=== PATIENT | female | born 1960 | race African-American/Black ===

== ENCOUNTER 2019-08-20 01:17 | Emergency (ER) | payer MEDICAID ==
[~2019-08-20] VITALS: Ht 165.1 cm; Wt 65.8 kg
[2019-08-20] MEDS ORDERED: Ketorolac 30mg Inj IV ONE (01:30)
[2019-08-20] MEDS ORDERED: HYDROmorphone 1mg/ml Carpuject IVP ONE ×2 (01:30→03:30)
--- NOTE | 2019-08-20 01:30 | Emergency Room Report ---
History of Present Illness General Chief Complaint: Lower Extremity Injury Source: Patient, EMS Present Illness HPI This a 58-year-old female with history of high blood pressure and colon cancer. She is status post resection in 2013. Did not undergo chemotherapy or radiation. She presents with chief complaint of back pain with radiation down her left leg. Onset about a week ago. Her doctor diagnosed her with osteoarthritis and put her on gabapentin, Voltaren, steroid. She said it was not helping. Tonight the pain was shooting and radiate down her legs. It woke her up. Pain is 10 out of 10. Unable to bear weight. She had to call 911. No incontinence of bowel or urine. No weight loss. No fever chills. No numbness. Allergies: Coded Allergies: No Known Allergies (Unverified , 08/20/19) COVID-19 Screening Contact w/high risk pt: No Recent Travel to affected area: No Experienced COVID-19 symptoms?: No COVID-19 Testing performed SURFACE BOSS: No Patient History Past Medical History: see triage record, old chart reviewed, HTN Past Surgical History: none Pertinent Family History: none Social History: Denies: smoking Last Menstrual Period: 2008 Now: No : 0 Para: 0 Nursing Documentation-PMH Hx Hypertension: Yes Hx Cancer: Yes - COLON Review of Systems Eye: Denies: eye pain, blurred vision ENT: Denies: ear pain, nose congestion, throat swelling Respiratory: Denies: cough, shortness of breath Cardiovascular: Denies: chest pain, palpitations Gastrointestinal: Denies: abdominal pain, diarrhea, nausea, vomiting Musculoskeletal: Reports: back pain; Denies: joint pain Skin: Denies: rash Neurological: Denies: headache, numbness Endocrine: Denies: increased thirst, increased urine Hematologic/Lymphatic: Denies: easy bruising All Other Systems: negative except mentioned in HPI Physical Exam Vital Signs Date Time Temp Pulse Resp B/P (MAP) Pulse Ox O2 Delivery O2 Flow Rate FiO2 08/20/19 01:13 97.3 110 18 176/110 (132) 98 Room Air Vitals with high blood pressure Sp02 EP Interpretation: reviewed, normal General Appearance: well appearing, no apparent distress, alert Head: normocephalic, atraumatic Eyes: bilateral eye PERRL, bilateral eye EOMI ENT: hearing grossly normal, normal pharynx Neck: full range of motion, supple, no meningismus Respiratory: chest non-tender, lungs clear, normal breath sounds Cardiovascular #1: regular rate, rhythm, no murmur Gastrointestinal: normal bowel sounds, non tender, no mass, no organomegaly, no bruit, non-distended Musculoskeletal: back normal - Tenderness to the lower lumbar area., normal range of motion Psychiatric: mood/affect normal Medical Decision Making Diagnostic Impression: Primary Impression: Sciatica of left side Additional Impression: Lumbar disc disease with radiculopathy ER Course This patient presents with back pain with radiculopathy and sciatica. CT scan show significant degenerative disc disease and disc bulge of the lumbar spine. No evidence of cauda equina syndrome, spinal epidural abscess or neoplastic process. CT/MRI/US Diagnostic Results CT/MRI/US Diagnostic Results : Imaging Test Ordered: CT lumbar spine Impression Read by radiologist. Degenerative disc disease. Moderate disc bulge of L3-L4 and L4-L5. Last Vital Signs Date Time Temp Pulse Resp B/P (MAP) Pulse Ox O2 Delivery O2 Flow Rate FiO2 08/20/19 01:13 97.3 110 18 176/110 (132) 98 Room Air Status: improved Disposition: HOME, SELF-CARE Condition: Stable Scripts Docusate Sodium* (COLACE*) 100 Mg Capsule 100 MG ORAL TWICE A DAY, #60 CAP Prov: Maximo Painter MD 08/20/19 Hydrocodone/Acetaminophen 5-325* (HYDROCODONE/ACETAMINOPHEN 5-325*) 1 Each Tablet 1 TAB ORAL Q6H PRN for For Pain, #30 TAB 0 Refills Prov: Maximo Painter MD 08/20/19 Additional Instructions: No heavy lifting. Follow-up with your doctor within a week. You may need an MRI of your lumbar spine. Return if symptoms worsen. Maximo Painter MD Aug 20, 2019 01:30
[2019-08-20 02:45] VITALS: BP 137/64
--- NOTE | 2019-08-20 02:54 | Diagnostic Imaging Report ---
ADDENDUM - Added by Sheri Camilo MD on 08/20/2019 4:35 AM (-07:00) Regarding lumbar spine: At the L2-3 level, there is minimal disc bulge, slightly eccentric towards the right, resulting in minimal encroachment on the right lateral recess and mild narrowing of the right neural foramen. At the L3-4 level, there is a moderate diffuse disc bulge with mild facet arthropathy and ligamentum flavum hypertrophy. This results in mild to moderate central canal narrowing and mild bilateral neural foraminal narrowing. At the L4-5 level, there is a mild grade 1 anterolisthesis of L4 on 5, approximately 2 mm. There is a moderate to severe diffuse disc bulge which is slightly eccentric towards the right paracentral and lateral aspect. There is moderate ligamentum flavum hypertrophy. There is moderate to severe right and moderate left facet arthropathy. These findings result in moderate to severe central canal stenosis. There is severe narrowing of the right neural foramen with moderate to severe narrowing of the left. At the L5-S1 level, there is a disc bulge with slightly eccentric towards the right. There is no significant central canal or neural foraminal narrowing. EXAM: CT Abdomen and Pelvis Without Intravenous Contrast CLINICAL HISTORY: PAIN TECHNIQUE: Axial computed tomography images of the abdomen and pelvis without intravenous contrast. CTDI is 8.5 mGy and DLP is 389 mGy-cm. One or more of the following dose reduction techniques were used: automated exposure control, adjustment of the mA and/or kV according to patient size, use of iterative reconstruction technique. COMPARISON: No relevant prior studies available. FINDINGS: Lung bases: Unremarkable. No mass. No consolidation. ABDOMEN: Liver: Unremarkable. Gallbladder and bile ducts: Unremarkable. No calcified stones. No ductal dilation. Pancreas: Unremarkable. No ductal dilation. Spleen: Unremarkable. No splenomegaly. Adrenals: Unremarkable. No mass. Kidneys and ureters: Prominent left proximal and mid ureter which is difficult to follow distally with minimal periureteral possible stranding; this could be seen with UTI or recently passed stone. No urolithiasis otherwise noted. Correlate with UA Likely left parapelvic cysts, benign findings which require no additional follow-up. Stomach and bowel: Prominent colonic stool burden, which could be a cause for pain. No obstruction. No mucosal thickening. PELVIS: Appendix: No findings to suggest acute appendicitis. Bladder: Urinary bladder wall thickening despite distention. This could be incidental, correlate clinically to exclude infectious or inflammatory cystitis. No stones. Reproductive: Unremarkable as visualized. ABDOMEN and PELVIS: Intraperitoneal space: Unremarkable. No free air. No significant fluid collection. Bones/joints: No acute fracture. No dislocation. Soft tissues: Unremarkable. Vasculature: Scattered bowel findings. Atherosclerotic vascular disease. No abdominal aortic aneurysm. Lymph nodes: Unremarkable. No enlarged lymph nodes. IMPRESSION: 1. Prominent left proximal and mid ureter which is difficult to follow distally with minimal periureteral possible stranding; this could be seen with UTI or recently passed stone. No urolithiasis otherwise noted. Correlate with UA 2. Urinary bladder wall thickening despite distention. This could be incidental, correlate clinically to exclude infectious or inflammatory cystitis. 3. Prominent colonic stool burden, which could be a cause for pain. <MYCVCSECTION> Communications: 08/20/19 03:43 Call From Maximo Olmos MD on 08/19 03:43 (-07:00) 08/20/19 03:47 Call From [facility] Maximo Painter MD on 08/19 03:46 (-07:00) 08/20/19 04:07 Call From Maximo Olmos MD on 08/19 04:01 (-07:00) 08/20/19 04:23 Call From [facility] Maximo Painter MD on 08/19 04:14 (-07:00) 08/20/19 04:44 Verify Receipt Verified receipt with AQUILINO Norton in ER for Maximo Painter MD on 08/19 04:42 (-07:00)
[2019-08-20 04:00] VITALS: BP 138/71
[2019-08-20 04:15] VITALS: BP 137/64
[2019-08-20] MEDS ORDERED: COLACE100 MG ORAL (04:23)
[2019-08-20] MEDS ORDERED: HYDROCODON-ACE1 EA15 ORAL (04:23)
== END 2019-08-20 04:15 | disposition home or self-care (01) ==
LOC: EDBD 01:17 → EMR 02:16
DX: M54.32 Sciatica, left side (principal); I10 Essential (primary) hypertension; Z85.038 Personal history of other malignant neoplasm of large intestine; M19.90 Unspecified osteoarthritis, unspecified site; Z79.899 Other long term (current) drug therapy; M51.16 Intervertebral disc disorders with radiculopathy, lumbar region
CPT/HCPCS: 72131; 96374; 96375; 96376; J1170; J1885; J2405; Z7502; 99284

== ENCOUNTER 2019-08-23 09:00 | Emergency (ER) | payer MEDICAID ==
[~2019-08-23] VITALS: Ht 165.1 cm; Wt 65.8 kg
[~2019-08-23 09:00] MED LIST: COLACE100 MG ORAL; HYDROCODON-ACE1 EA15 ORAL
[2019-08-23 09:14] VITALS: BP 102/65
[2019-08-23] MEDS ORDERED: TYLENOL325 MG ORAL (09:24)
[2019-08-23] MEDS ORDERED: IBUPROFEN600 M1 ORAL (09:24)
[2019-08-23] MEDS ORDERED: ROBAXIN-750750 MG PO (09:24)
[2019-08-23] MEDS ORDERED: LIDODERM700 M1 TOPIC (09:24)
--- NOTE | 2019-08-23 09:24 | Emergency Room Report ---
History of Present Illness General Chief Complaint: Lower Back Pain or Injury Source: Patient Present Illness HPI 58-year-old female history of sciatic nerve pain, history of bulging disks, presents with continued left shooting pain from her left buttock left lower back down her left leg, aggravated with certain positions alleviated with rest severity is moderate, she denies any bowel bladder retention/incontinence, no perianal numbness, no fevers no chills no history of IV drug use, patient states she is waiting for preauthorization to see an orthopedic/neurosurgeon to evaluate her back patient is requesting a pain shot as well as a steroid. Allergies: Coded Allergies: No Known Allergies (Unverified , 08/20/19) COVID-19 Screening Contact w/high risk pt: No Recent Travel to affected area: No Experienced COVID-19 symptoms?: No COVID-19 Testing performed BULL RIDER: No Patient History Past Medical History: see triage record Reviewed Nursing Documentation: PMH: Agreed; PSxH: Agreed Nursing Documentation-PMH Past Medical History: No History, Except For Hx Hypertension: Yes Hx Cancer: Yes - COLON Review of Systems All Other Systems: negative except mentioned in HPI Physical Exam Vital Signs Date Time Temp Pulse Resp B/P (MAP) Pulse Ox O2 Delivery O2 Flow Rate FiO2 08/23/19 09:05 98.4 72 20 102/65 (77) 100 Room Air General Appearance: well appearing, no apparent distress Head: normocephalic, atraumatic ENT: hearing grossly normal, normal voice Neck: full range of motion, supple Respiratory: no respiratory distress, speaking full sentences Musculoskeletal: other - Back: No midline tenderness no step-offs, tenderness to palpation left lateral back left paraspinal back, MSK: 5-5 hip flexion extension, knee flexion extension, ankle plantar dorsiflexion, numbness near the left anterior leg Neurologic: alert, normal gait Psychiatric: mood/affect normal Skin: no rash Medical Decision Making Diagnostic Impression: Primary Impression: Sciatica of left side ER Course The patient presents with acute onset of back pain. Clinically this patient can be ruled out for serious pathology given there is a completely normal neurological exam, no history of IV drug use, and no history of bowel or bladder incontinence, no perianal numbness/tingling, no constipation or urinary retention. Once the patient's pain was adequately controlled, the patient was able to ambulate and be discharged in stable condition with anticipatory guidance provided. Last Vital Signs Date Time Temp Pulse Resp B/P (MAP) Pulse Ox O2 Delivery O2 Flow Rate FiO2 08/23/19 09:14 98.4 72 20 102/65 100 Room Air Disposition: HOME, SELF-CARE Condition: Stable Scripts Lidocaine Patch* (Lidoderm Patch*) 1 Each Adh..patch 1 PATCH TOPIC DAILY, #7 PATCH 0 Refills Patch(es) may remain in place for up to 12 hours in any 24-hour period. Prov: Allen Nathan MD 08/23/19 Methocarbamol* (ROBAXIN-750*) 750 Mg Tablet 750 MG PO QID, #28 TAB 0 Refills Prov: Allen Nathan MD 08/23/19 Acetaminophen (Tylenol) 325 Mg Tablet 650 MG ORAL Q6H PRN for Prn Pain/Headache/Temp > 101, #30 TAB 0 Refills Prov: Allen Nathan MD 08/23/19 Ibuprofen* (MOTRIN*) 600 Mg Tablet 600 MG ORAL Q8H PRN for FOR PAIN, #30 TAB 0 Refills Prov: Allen Nathan MD 08/23/19 Referrals: [facility] Patient Instructions: Sciatica, [id number] Additional Instructions: The patient was provided with discharge instructions, notified to follow-up with a primary care doctor and or specialist in the next 24-48 hours, and to return to the ED if they have worsening of their symptoms. Please note that this report is being documented using [employer] technology. This can lead to erroneous entry secondary to incorrect interpretation by the dictating instrument. Allen Nathan MD Aug 23, 2019 09:24
--- NOTE | 2019-08-23 09:26 | NUR ---
ED Nurse Note:pt. came with c/o left lower back sciatica pain
[2019-08-23] MEDS ORDERED: Ketorolac 30mg Inj IM ONE (09:30)
[2019-08-23] MEDS ORDERED: HYDROcodone/Acetamin 5/325 tab ORAL ONE (09:30)
[2019-08-23 09:48] VITALS: BP 102/65
--- NOTE | 2019-08-23 09:50 | NUR ---
ED Nurse Note: Pt cleared by health care Provider for discharge. DC instructions/prescription was given and explained to pt and verbalized understanding of teachings. All medical deviecs such as ID band removed. Pt is AAO x4, ambulatory and left with all personal belongings.
== END 2019-08-23 09:58 | disposition home or self-care (01) ==
LOC: EMR 09:20
DX: M54.32 Sciatica, left side (principal); I10 Essential (primary) hypertension; Z85.038 Personal history of other malignant neoplasm of large intestine
CPT/HCPCS: 96372; J1100; J1885; Z7502; 99283

== ENCOUNTER 2019-09-02 09:54 | Emergency (ER) | payer MEDICAID ==
[~2019-09-02] VITALS: Ht 165.1 cm; Wt 65.8 kg
[~2019-09-02 09:54] MED LIST changes: +IBUPROFEN600 M1 ORAL; +LIDODERM700 M1 TOPIC; +ROBAXIN-750750 MG PO; +TYLENOL325 MG ORAL
--- NOTE | 2019-09-02 10:05 | NUR ---
ED Nurse Note: PT AMBULATED TO ED C/O LEFT HIP PAIN RADIATING DOWN THE LEFT LEG X 1 MONTH. PT STATES SHE WAS TOLD TO RETURN IN THE WEEK TO COMPLETE AND MRI. PT REPORTS HISTORY OF HERNIATED DISK, OSTEOARTHRITIS, AND SCIATICA.
--- NOTE | 2019-09-02 10:06 | NUR ---
ED Nurse Note: PT STATES THAT SHE DID NOT TAKE ANY MEDICATION PRIOR TO ARRIVAL TO ED
[2019-09-02 10:08] VITALS: BP 149/91
[2019-09-02] MEDS ORDERED: Ketorolac 30mg Inj IM ONE (11:00)
[2019-09-02] MEDS ORDERED: ROBAXIN-500MG ORAL (11:13)
[2019-09-02 11:15] VITALS: BP 145/87
[2019-09-02] MEDS ORDERED: MEDROL DOSEPAK4 MG ORAL (11:15)
--- NOTE | 2019-09-02 11:15 | NUR ---
ER DISCHARGE NOTE: Patient is cleared to be discharged per ERMD, pt is aox4, on room air, with stable vital signs. pt was given dc and prescription instructions, pt was able to verbalize understanding, pt id band removed. pt is able to ambulate with steady gait. pt took all belongings. Pt educated regarding lumbar pain and medication prescrip.
--- NOTE | 2019-09-04 15:31 | Emergency Room Report ---
History of Present Illness General Chief Complaint: Pain Source: Patient Present Illness HPI Patient is a 58-year-old female presents after increased low back pain and left- sided leg pain. Patient had recent ER visit for similar symptoms and had recent imaging studies performed. She denies any fever. She denies any weakness or bowel or bladder dysfunction. She had been taking medications for pain without any improvement. Denies any recent trauma. Onset of symptoms over the past 2 weeks. Denies any dysuria or vomiting or diarrhea. Previously been told that she had herniated disc. 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 COVID-19 Screening: Negative COVID-19 COVID-19 Testing Source: nasopharynx Patient History Past Medical History: see triage record Now: No Reviewed Nursing Documentation: PMH: Agreed; PSxH: Agreed Nursing Documentation-PMH Hx Hypertension: Yes Hx Cancer: Yes - COLON Review of Systems All Other Systems: negative except mentioned in HPI Physical Exam Vital Signs Date Time Temp Pulse Resp B/P (MAP) Pulse Ox O2 Delivery O2 Flow Rate FiO2 09/02/19 09:57 98.6 85 20 149/91 (110) 97 Room Air Sp02 EP Interpretation: reviewed, normal General Appearance: normal inspection, well appearing, no apparent distress, alert, GCS 15 Head: atraumatic ENT: normal ENT inspection, hearing grossly normal, normal voice Neck: normal inspection, full range of motion, supple, no bony tend Respiratory: normal inspection, lungs clear, normal breath sounds, no respiratory distress, no retraction, no wheezing Cardiovascular #1: regular rate, rhythm, no edema, normal capillary refill Cardiovascular #2: 2+ dorsalis pedis (R), 2+ dorsalis pedis (L) Gastrointestinal: normal inspection, normal bowel sounds, non tender, soft, no guarding, no hernia Genitourinary: no CVA tenderness Musculoskeletal: normal inspection, back normal, normal range of motion Neurologic: alert, motor strength/tone normal, gel coat sprayer III-XII nml as tested, oriented x3, responsive, speech normal, normal inspection Psychiatric: normal inspection, judgement/insight normal, mood/affect normal Skin: no rash Medical Decision Making Diagnostic Impression: Primary Impression: Lumbar disc disease ER Course Patient presented for low back pain and leg numbness. Differential diagnosis includes not limited to herniated disc, degenerative arthritis, radiculopathy, among others. Patient appears to have normal vascular exam. Her left lower extremity does have some paresthesias but does not appear to have any evidence of weakness at this time. Patient was advised to follow-up with her primary care physician for outpatient MRI if symptoms persisted. She is advised physical therapy as well as initial therapeutic exercises. She was advised to return if she began having bowel or bladder dysfunction fever or other concerns. She was given prescription for Medrol Dosepak and muscle relaxants.. This medical record is generated with Run[employer] driver sales software. There may be some driver sales discrepancies related to use of this software Last Vital Signs Date Time Temp Pulse Resp B/P (MAP) Pulse Ox O2 Delivery O2 Flow Rate FiO2 09/02/19 11:15 98.6 09/02/19 11:15 81 18 145/87 99 Room Air Status: improved Disposition: HOME, SELF-CARE Condition: Stable Scripts Methylprednisolone (Methylprednisolone*) 4MG Dspk 4 MG ORAL DIRECTED for 6 Days, #21 EA 0 Refills Day 1: Two tablets before breakfast, one after lunch, one after dinner, and two at bedtime. If started late in the day, take all six tablets at once or divide into two or three doses, unless otherwise directed by prescriber. Day 2: One tablet before breakfast, one after lunch, one after dinner, and two at bedtime Day 3: One tablet before breakfast, one after lunch, one after dinner, and one at bedtime Day 4: One tablet before breakfast, one after lunch, and one at bedtime Day 5: One tablet before breakfast and one at bedtime Day 6: One tablet before breakfast Prov: Josh Khanna MD 09/02/19 Methocarbamol* (ROBAXIN-500*) 500 Mg Tablet 500 MG ORAL TID PRN for For Pain, #15 TAB 0 Refills Prov: Josh Khanna MD 09/02/19 Patient Instructions: Sciatica, [id number] Additional Instructions: Follow up with your doctor for physical therapy and MRI. Return if worse. Josh Khanna MD Sep 04, 2019 15:31
== END 2019-09-02 11:32 | disposition home or self-care (01) ==
LOC: EMR 10:24
DX: M51.36 Other intervertebral disc degeneration, lumbar region (principal); M79.662 Pain in left lower leg; I10 Essential (primary) hypertension; Z85.038 Personal history of other malignant neoplasm of large intestine
CPT/HCPCS: 96372; J1885; Z7502; 99283